=== PATIENT | male | born 1980 | race Caucasian/White ===

== ENCOUNTER 2024-03-27 15:12 | Emergency (ER) | payer OTHER, SELFPAY ==
--- NOTE | ~2024-03-27 | XR_ITS ---
EXAMINATION: XR chest 2V Exam Date/Time: 03/27/2024 15:30 CDT HISTORY: ANHYDROUS AMMONIA INHALATION Comparison: None. RESULT: Lines, tubes, and devices: ACDF hardware. Lungs and pleura: Clear. Cardiomediastinal silhouette: Normal. Other: No acute osseous or upper abdominal finding. IMPRESSION: No acute cardiopulmonary process. Reviewed, dictated and finalized at location K.
[2024-03-27 15:20] VITALS: PULSE 88; RESP 20; O2SAT 98
[2024-03-27 15:26] VITALS: BP 128/81; PULSE 84; RESP 18; TEMP 36.2; O2SAT 97
[2024-03-27 15:45] VITALS: PULSE 82; RESP 20; O2SAT 99
[2024-03-27 15:54] LABS: Base Excess ABG -2.3 mmol/L (0-2); HCO3 ABG 21.5 mmol/L (23-29); Oxygen Content ABG 21.2 %vol (16.0-22.0); Oxygen Saturation ABG 96.9 % (95-97); Oxyhemoglobin 96.4 % (94-100); PCO2 ABG 34.5 mmHg (35-45); PO2 ABG 100.4 mmHg (80-90); pH ABG 7.41 (7.35-7.45)
[2024-03-27 15:56] LABS: Basophils Absolute Auto 0.02 K/mm3 (0.00-0.10); Basophils Percent Auto 0.4 % (0.0-1.0); Eosinophils Absolute Auto 0.11 K/mm3 (0.02-0.50); Eosinophils Percent Auto 2.3 % (1.0-6.0); Hematocrit 41.9 % (40.0-54.0); Hemoglobin 14.6 g/dL (14.0-18.0); Lymphocytes Absolute Auto 1.06 K/mm3 (1.10-4.50); Lymphocytes Percent Auto 22.3 % (18.0-42.0); Mean Corpuscular HGB Conc 34.8 g/dL (32-36); Mean Corpuscular Hemoglobin 30.5 pg (27.0-31.0); Mean Corpuscular Volume 87.5 fL (78.0-102.0); Mean Platelet Volume 9.6 fl (8.7-11.0); Monocytes Percent Auto 8.4 % (2.0-11.0); Neutrophils Absolute Auto 3.17 K/mm3 (1.70-7.20); Neutrophils Percent Auto 66.6 % (50.0-70.0); Platelet Count Result 202 K/mm3 (150-420); Red Blood Count 4.79 M/mm3 (4.70-6.10); Red Cell Distribution Width 12.9 % (11.6-14.4); White Blood Count 4.8 K/mm3 (4.8-10.8)
--- NOTE | 2024-03-27 15:57 | PC.NURSE ---
1520 pt washing face and eyes with water and pt placed on 2L O2 n/c
[2024-03-27 16:00] LABS: Modified Allen's Test Pass; Site Drawn RIGHT RADIAL
[2024-03-27 16:01] LABS: Device NASAL CANNULA
[2024-03-27 16:02] VITALS: RESP 20
[2024-03-27 16:11] LABS: Alanine Aminotransferase 94 U/L (16-63); Albumin Level 4.1 g/dL (3.4-5.0); Alkaline Phosphatase 60 U/L (46-116); Anion Gap 10 mmol/L (4-12); Aspartate Amino Transferase 31 U/L (15-37); Bilirubin,Total 0.4 mg/dL (0.00-1.00); Blood Urea Nitrogen 20 mg/dL (7-18); Calcium 9.4 mg/dL (8.5-10.1); Carbon Dioxide 28 mmol/L (21-32); Chloride 101 mmol/L (98-108); Estimated CRCL calculation 90 ml/min; Estimated Glomerular Filt Rate > 60; Glucose 97 mg/dL (70-99); Osmolality Calculated 290 mOsm/kg (285-295); Potassium 3.7 mmol/L (3.5-5.1); Sodium 139 mmol/L (136-145); Total Protein 7.7 g/dL (6.4-8.2)
[2024-03-27 16:18] LABS: Lactic Acid Reflex 0.6 mmol/L (0.4-2.0)
--- NOTE | 2024-03-27 16:34 | ED.SOB ---
HPI - SOB/Dyspnea General Chief Complaint: Unspecified Stated Complaint: anhydrous ammonia exposure Time Seen by Provider: 03/27/24 15:28 Source: patient Mode of arrival: ambulatory Limitations: no limitations History of Present Illness HPI Narrative: This is a 43-year-old male with no significant past medical history presents with some mild shortness of breath after while at work he inhaled anhydrous ammonia there is no skin irritation the patient's satting 99% on room air. Currently there is no nausea vomiting no abdominal pain no blurry vision. Patient states that he does have some mild tingling in his face and a mild headache. Otherwise no nausea vomiting no fever chills no chest pain or abdominal pain. MD elicited complaint: shortness of breath Onset (ago): hour(s) Related Data Home Medications Medication Instructions Recorded Confirmed No Home Medications 03/27/24 03/27/24 Allergies Allergy/AdvReac Type Severity Reaction Status Date / Time No Known Allergies Allergy Verified 03/27/24 16:03 Review of Systems Review of Systems: All systems reviewed & are unremarkable except as noted in HPI and below PMFSH Past Medical History Medical History Patient denies medical problems Exam Const: General: healthy appearing Nutritional Appearance: well nourished Orientation/consciousness: patient oriented x3 Limitations: no limitations HENMT: Head: normal to inspection Eyes: Conjunctivae: conjunctivae normal Pupils: Equal, round and reactive pupils present EOM: EOMs intact bilaterally Neck: Neck: normal visual inspection and no lymphadenopathy Chest: Chest palpation & inspection: normal inspection of the chest Resp: Effort & Inspection: normal respiratory effort Auscultation: clear to auscultation bilaterally Cardio: Rate: regular rate Rhythm: regular rhythm GI: GI Palp: Yes Soft to palpation Auscultation: normal bowel sounds Skin: General skin exam: normal color Rashes: no rashes Wounds: no wounds Neuro: General: patient oriented x3, moves all extremities, no meningeal signs and no focal motor deficits Cranial nerves: Yes Nystagmus not present Speech: normal speech Extrem: General: normal to inspection and no clubbing, cyanosis or edema Psych: Mental Status: mental status grossly normal Course Course Emergency Course: patient inhaled anhydrous ammonia while at work minimal exposure, presents with mild shortness of breath currently doing well denies any shortness of breath placed on 2L of oxygen satting at 99% on room air. Labs reviewed with no significant abnormalities chest x-ray with normal lung carballo and ABG is unremarkable. Vital Signs Vital signs: Vital Signs Pulse Rate 88 03/27/24 15:20 Respiratory Rate 20 03/27/24 15:20 Pulse Oximetry 98 03/27/24 15:20 Oxygen Delivery Room Air 03/27/24 15:20 Temperature 36.2 C L 03/27/24 15:26 Pulse Rate 82 03/27/24 15:45 Respiratory Rate 20 03/27/24 16:02 Blood Pressure 128/81 03/27/24 15:26 Pulse Oximetry 99 03/27/24 15:45 Oxygen Delivery Nasal Cannula 03/27/24 15:45 Oxygen Flow Rate 2 03/27/24 15:45 MDM - SOB/Dyspnea Lab Data 03/27/24 15:52 03/27/24 15:52 Labs: Lab Results 03/27/24 Range/Units 15:52 WBC 4.8 (4.8-10.8) K/mm3 RBC 4.79 (4.70-6.10) M/mm3 Hgb 14.6 (14.0-18.0) g/dL Hct 41.9 (40.0-54.0) % MCV 87.5 (78.0-102.0) fL MCH 30.5 (27.0-31.0) pg MCHC 34.8 (32-36) g/dL RDW 12.9 (11.6-14.4) % Plt Count 202 (150-420) K/mm3 MPV 9.6 (8.7-11.0) fl Immature Gran % (Auto) 0.0 (0.0-0.0) % Neut % (Auto) 66.6 (50.0-70.0) % Lymph % (Auto) 22.3 (18.0-42.0) % [place] % (Auto) 8.4 (2.0-11.0) % Eos % (Auto) 2.3 (1.0-6.0) % Baso % (Auto) 0.4 (0.0-1.0) % Lymph # (Auto) 1.06 L (1.10-4.50) K/mm3 [place] # (Auto) 0.40 (0.10-0.90) K/mm3 Eos # (Auto) 0.11 (0.02
[2024-03-27 16:46] VITALS: BP 136/77; PULSE 81; RESP 16; TEMP 36.4; O2SAT 97
== END 2024-03-27 16:55 | disposition home or self-care (01) ==
PROVIDERS: Emergency Provider Emergency Medicine
DX: T59.891A Toxic effect of other specified gases, fumes and vapors, accidental (unintentional), initial encounter (principal); R06.02 Shortness of breath
CPT/HCPCS: 36415; 36600; 71046; 80053; 82805; 83605; 85025; 99283